=== PATIENT | female | born 1930 | race Caucasian/White ===

== ENCOUNTER 2016-05-24 13:54 | Emergency (ER) | payer MEDICARE ==
[~2016-05-24] VITALS: Ht 157.5 cm; Wt 54.5 kg
[2016-05-24 14:03] VITALS: BP 114/54
[2016-05-24] MEDS ORDERED: NS IV 500 ML 500 ML IV SCH (14:20)
[2016-05-24] MEDS ORDERED: KETOROLAC 15 MG/ML (TORADOL) 1 ML VIAL IV ONE (14:45)
[2016-05-24 14:50] LABS: MEAN CORPUSCULAR HGB CONC 32.6 g/dL (31.0-37.0); MEAN CORPUSCULAR VOLUME 83 FL (80-100); MEAN PLATELET VOLUME 10.3 FL (6.0-9.5); PLATELET COUNT 301 10^3uL (150-450); WHITE BLOOD COUNT 5.12 10^3uL (4.0-11.0)
[2016-05-24 14:56] LABS: ALBUMIN 3.5 g/dL (3.4-5.0); ANION GAP 11.1 MEQ/L (3-15); CALCULATED IONIZED CALCIUM 4.6 mg/dL (3.8-4.6); TOTAL PROTEIN 6.2 g/dL (6.4-8.5)
[2016-05-24 14:59] LABS: BAND NEUTROPHILS % 2 % (0-6); EOSINOPHILS % 1 % (0-4); LYMPHOCYTES # 0.9 #; MONOCYTES # 0.7 #; MONOCYTES % 14 % (3-11); SEGMENTED NEUTROPHILS % 65 % (51-67); TOTAL CELLS COUNTED 100
[2016-05-24 15:00] LABS: RBC MORPH NORMAL (NORMAL)
--- NOTE | 2016-05-24 15:16 | NUR ---
DANNY COMES TO DESK ASKING THIS RN TO HELP HIM PULL PT BACK UP IN BED STATING "SHES IN A TERRIBLE AMT OF PAIN AT JUST THE SLIGHTEST TOUCH BUT SHE MOVES BACK & FORTH THEN BACK DOWN IN THE BED". "I JUST NEED HELP GETTING BACK UP TO THE TOP. PT ASSISTED UP IN BED. CL
--- NOTE | 2016-05-24 15:20 | NUR ---
IVF of NS 500 ml has finished infusing per pump. Pt continues to have intermittant restlessness and appearing uncomfortable - spouse insists she is having pain . Between episodes pt appears calm. Has spoken but not sensibly to staff.
--- NOTE | 2016-05-24 15:42 | NUR ---
This nurse called [facility] for transportation and then phone was given to Kin ZURITA to give report to Lisa GAVIN.
[2016-05-25 20:03] LABS: IRON 30 ug/dL (50-170); UNBOUND IRON CONTENT 312 ug/dl (126-382)
== END 2016-05-24 16:03 | disposition home or self-care (01) ==
LOC: EDUNIT# 13:54 → ED 13:57
DX: D64.9 Anemia, unspecified (principal); M62.830 Muscle spasm of back
CPT/HCPCS: 36415; 80053; 83540; 83550; 85025; 86140; 96361; 96374; 99284; J1885; J7040; 99283

== ENCOUNTER → 2016-08-15 | Outpatient (REF) | payer MEDICARE ==
[~2016-08-15] MED LIST: AC325T PO; ACET-789 PO; ACET1TAB43; AGM500T PO; ASPI-860 PO; ASPI-894 PO; BISA5TAB8 PO; CLOP75TA28 PO; CLOP75TA3; CYAN10004 IJ; DEXT1DRO7 OD; DILANTIN PO; DOCU-243 PO; DONE10TA5 PO; DPAS20025 PO; ESCI20TA PO; FLUO40CA PO; FLX20C PO; HYDR-3702 PO; LOPE2CAP29 PO; NITR100C3 PO; OLAN2.5T3 PO; PHEN100C5 PO; PHN100C PO; POLY17PO2 PO; POLY17PO6 PO; POTA10CA16 PO; POTTASIUM; PRAV40TA PO; SULF1TAB35 PO; TRAM100T7 PO; potassium PO
[2016-08-15 22:00] LABS: BILIRUBIN,URINE Negative (Negative); CLARITY,URINE Cloudy; COLOR,URINE Yellow; GLUCOSE, URINE (UA) Negative (Negative); LEUKOCYTE ESTERASE, URINE Trace (Negative); PH,URINE 5.5 (5.0 - 8.0); UROBILINOGEN,URINE 0.2 mg/dL (0.2-1.0)
[2016-08-15 22:13] LABS: RBC,URINE 0-2 /HPF; URINE CENTRIFUGED VOLUME 12 mL
== END ==
LOC: LAB 21:30
PROVIDERS: ATTEND Family Medicine
DX: R30.0 Dysuria (principal); N39.0 Urinary tract infection, site not specified
CPT/HCPCS: 81003; 81015; 87088